=== PATIENT | male | born 1965 | race Two or more races ===

== ENCOUNTER 2018-11-11 06:12 | Emergency (ER) | payer OTHER ==
[~2018-11-11] VITALS: Ht 188 cm; Wt 104.3 kg
[2018-11-11 07:12] VITALS: BP 172/111
[2018-11-11] MEDS ORDERED: KETOROLAC TROMETH 60MG/2ML VIAL IM ONE (07:30)
== END 2018-11-11 07:50 | disposition home or self-care (01) ==
LOC: ER 06:12
DX: M75.92 Shoulder lesion, unspecified, left shoulder (principal); E11.9 Type 2 diabetes mellitus without complications; F17.210 Nicotine dependence, cigarettes, uncomplicated
CPT/HCPCS: 73030; 96372; 99283; J1885